=== PATIENT | male | born 1985 | race Two or more races ===

== ENCOUNTER 2024-10-11 18:36 | Emergency (ER) | payer SELFPAY ==
[2024-10-11] VITALS (7 sets, daily range): BP systolic 160–196; BP diastolic 106–122; PULSE 67–89; RESP 16–24; TEMP 36.8; O2SAT 97–99; BMI 25.4
--- NOTE | 2024-10-11 20:05 | RAD_ITS ---
PROCEDURE: CHEST 1 VIEW (PORTABLE) REASON FOR EXAM: Cough. TECHNIQUE: Frontal view of the chest. COMPARISON: None. FINDINGS: Cardiac size and pulmonary vasculature are within normal limits. No consolidation, pleural effusion, or pneumothorax is present. RAD/Chest 1 View (Portable) IMPRESSION: No acute cardiopulmonary process. [facility]
[2024-10-11] MEDS: 0.9% Normal Saline (1000mL) 1,000 ML 1000 ML IV (22:31)
[2024-10-11 22:38] LABS: Absolute Lymphocyte Count 3.67 X10^3/uL (0.83-4.51); Absolute Neutrophil Count 5.2 X10^3/uL (2.0-7.7); Basophil# 0.11 X10^3/uL; Basophil% 1.1 % (0-1); Hematocrit 50.8 % (40-54); Hemoglobin 16.7 g/dL (13.0-16.5); Lymphocyte # 3.67 X10^3/ul (0.83-4.51); Mean Corp Hgb Conc 32.9 g/dL (32-36); Mean Corpuscular Hgb 27.3 pg (27.0-32.0); Mean Platelet Vol. 10.5 fl (6.2-12.0); Monocyte# 0.91 X10^3/uL; Monocyte% 8.9 % (0-10); NRBC Flagged by Analyzer 0 % (0-5); Neutrophil # 5.24 X10^3/uL (2.7-7.7); Neutrophil % 51.4 % (47-70); Platelet Count 229 K/mm3 (150-450); RBC Distribution Width SD 39.1 fl (35.1-43.9); Red Blood Count 6.12 M/mm3 (4.6-6.2); White Blood Count 10.2 K/mm3 (4.4-11.0)
--- NOTE | 2024-10-11 22:42 | EX.ED.DYSGE1 ---
HPI History of Present Illness Chief Complaint: Cold Sx Informant: patient Onset/Context/Timing Onset: Weeks (1) Context: Gradual Onset Timing: Continuous Quality: Sharp Location: Chest Worsened by: Nothing Relieved by: Nothing Narrative Narrative: Patient presents with cough and ear pain that has been getting worse over the past week. Patient states his pain is constant. Patient also admits to some pain in his chest. Patient describes it as sharp. Patient states his diffuse across his chest. Patient states it radiates into his left arm. Patient admits to a cough with some yellow and white sputum. Patient admits to some shortness of breath. Patient also admits to some nasal congestion. Patient denies any fevers or chills. PFSH PFS Home Medications ?Medication ?Instructions ?Recorded ?Last Taken ?Type amlodipine 5 mg tablet 5 mg PO DAILY #20 tabs 10/12/24 Unknown Rx azithromycin 250 mg tablet 250 mg PO DAILY #4 TABLETS 10/12/24 Unknown Rx Allergy/AdvReac Type Severity Reaction Status Date / Time No Known Allergies Allergy Verified 10/11/24 18:39 Surgical History History of hernia repair Social History Smoking Status: Current every day smoker tobacco type: cigarettes ROS ROS ED Constitutional Constitutional ED: Denies chills or fever(s) Eyes Eyes: Denies blurry vision or change in vision ENT ENT ED: Reports ear pain; Denies rhinorrhea or sore throat Cardiovascular Cardiovascular: Reports chest pain; Denies palpitations Respiratory/Chest Respiratory/Chest: Reports cough and dyspnea Gastrointestinal Gastrointestinal: Denies nausea or vomiting Genitourinary Genitourinary ED: Denies dysuria or hematuria Musculoskeletal Musculoskeletal: Denies back pain or neck pain Integumentary Denies abscess or rash Neurologic Neurologic: Denies headache(s) or weakness Allergic/Immunologic Allergic/Immunologic ED: Denies mouth swelling or urticaria EXAM Physical Exam Const Vital Signs: 10/11/24 18:39 10/11/24 21:13 10/11/24 21:13 Temperature 98.3 F Temperature Source Oral Pulse Rate 89 Respiratory Rate 18 Respiratory Effort Short of Breath Respiratory Depth Normal Respiratory Pattern Normal Blood Pressure 196/120 H Blood Pressure Mean 145 Pulse Ox 99 Oxygen Delivery Method Room Air Room Air Room Air 10/11/24 21:23 Temperature Temperature Source Pulse Rate 71 Respiratory Rate 16 Respiratory Effort Respiratory Depth Respiratory Pattern Blood Pressure 170/113 H Blood Pressure Mean 132 Pulse Ox 99 Oxygen Delivery Method Room Air Positive well nourished and well developed General Appearance ED: well developed and NAD HEENT Reports moist mucous membranes HEENT Narrative: The left tympanic membrane was erythematous. The right tympanic membrane was clear. Neck supple and no JVD Resp normal respiratory effort and clear to auscultation bilaterally Cardio regular rate and regular rhythm GI non-tender and non-distended Palpation: soft Neuro oriented x3, CN's II-XII intact bilaterally and no sensory deficits noted Sensorium / Orientation: alert Motor Exam: strength 5/5 throughout Psych mental status grossly normal MDM MDM MDM Narrative Medical decision making narrative: Differential diagnosis includes pneumonia, bronchitis, viral illness, cardiac dysrhythmia, cardiac ischemia, electrolyte abnormality, and musculoskeletal pain. Chest x-ray will be obtained to assess for pneumonia and bronchitis. EKG will be obtained to assess for cardiac dysrhythmia and cardiac ischemia. CBC will be obtained to assess for leukocytosis and anemia. Basic metabolic profile will be obtained to assess for electrolyte abnormality and renal function. High-sensitivity troponin will be obtained to assess for cardiac ischemia. Lab Data Attestation: I reviewed the patient's lab results. Lab results narrative: CBC was reviewed and was within normal limits. Basic metabolic profile was reviewed and was within normal limits. High-sensitivity troponin was reviewed and was normal at 7. Labs: Laboratory Results - last 24 hr 10/11/24 22:30 WBC 10.2 RBC 6.12 Hgb 16.7 H Hct 50.8 MCV 83.0 MCH 27.3 MCHC 32.9 RDW Std Deviation 39.1 RDW Coeff of Kirt 13.0 Plt Count 229 MPV 10.5 Immature Gran % (Auto) 0.600 Neut % (Auto) 51.4 Lymph % (Auto) 36.0 Bartholomew % (Auto) 8.9 Eos % (Auto) 2.0 Baso % (Auto) 1.1 H Absolute Neuts (auto) 5.2 Absolute Lymphs (auto) 3.67 Nucleated RBC % 0 Radiography Chest X-Ray - ED: 1 View, Read by ED Physician, Read by Radiologist and No Acute Disease Diagnostic Testing: Clinical Impression(s) from Imaging Studies Chest X-Ray 10/11/24 20:05 IMPRESSION: No acute cardiopulmonary process. Reading Location: [facility] Portable 1 view chest x-ray was obtained. On my independent interpretation, lung de león are clear. There is normal cardiac silhouette. Bony thorax is normal. There is no acute process noted. Radiologist also interpreted the x-ray and agrees. EKG Initial EKG: Attestation: I personally reviewed and interpreted this EKG as follows: Interpretation: Sinus Rhythm (67) and No Acute Injury Pattern Comments: EKG was obtained. On my independent interpretation, it showed a normal sinus rhythm with a rate of 67. MI interval, QRS interval, and QTc intervals were all normal. [place] was normal. There are no acute ST or T wave changes. There is left ventricular hypertrophy noted. Prior EKG tracings: not available for review Prior: No Prior Treatment and Re-Evaluation :: Patient was given IV fluids. Patient given a dose of labetalol. Patient was advised of his findings. Patient's blood pressure improved to 155/100. Patient was advised that some of his symptoms could be related to his blood pressure. Patient was started on amlodipine. Patient was also given a prescription for Zithromax for his ear infection. Patient was instructed to follow-up with his primary care physician in 5 to 7 days. Patient understood and was agreeable with the plan. All questions were answered. Discharge Plan Triage Chief Complaint: Cold Sx Other Complaint: Cough Ear Problem ED Provider: Idris Santos Dx/Rx/DC Orders Clinical Impression: Acute left otitis media, Hypertension, Chest pain Instructions: ED Hypertension New Begin Treatment, ED Otitis Media Adult Prescriptions: New azithromycin 250 mg tablet 250 mg PO DAILY Qty: 4 0RF amlodipine 5 mg tablet 5 mg PO DAILY Qty: 20 0RF Primary Care Provider: Care Physician,No Primary Referrals: Belgica Brito MD [Med Staff - Order To Delivery Supervisor] - 3-5 Days Care Physician,No Primary [Primary Care Provider] - Print Language: British Disposition Disposition: Home, Self Care
[2024-10-11 22:58] LABS: Anion Gap 6 (5-15); BUN 20 mg/dL (7-18); BUN/Creat Ratio 19.2 RATIO (10-20); Calcium,Total 9.5 mg/dL (8.5-10.1); Chloride 106 mmol/L (98-107); Creatinine, Serum 1.04 mg/dL (0.70-1.30); EST Glomerular Filtration Rate 85 mL/min (>60); Est Glom Filt Rate - Afr Amer 103 mL/min (>60); Estimated Creatinine Clearance 97.25 ml/min; Glucose 92 mg/dL (74-106); Potassium 3.4 mmol/L (3.5-5.1); Sodium Level 139 mmol/L (136-145); Troponin-I HS 7 pg/mL (3.0-78.0)
[2024-10-12] MEDS: cloNIDine HCl 0.1 MG Tablet PO (00:44)
[2024-10-12] MEDS: Azithromycin 250 MG Tablet 500 MG PO (00:50)
[2024-10-12 00:51] VITALS: BP 155/100; PULSE 68; RESP 15; TEMP 37.1; O2SAT 99
== END 2024-10-12 00:52 | disposition home or self-care (01) ==
PROVIDERS: Emergency Provider Emergency Medicine; Visit Provider Emergency Medicine
DX: H66.92 Otitis media, unspecified, left ear (principal); R07.9 Chest pain, unspecified; I10 Essential (primary) hypertension; R06.02 Shortness of breath; F17.210 Nicotine dependence, cigarettes, uncomplicated; Z79.899 Other long term (current) drug therapy
CPT/HCPCS: 71045; 80048; 84484; 85025; 93005; 96361; 96374; 99285; A4216